=== PATIENT | female | born 1980 | race Caucasian/White ===

== ENCOUNTER 2019-05-09 13:57 | Emergency (ER) | payer OTHER ==
[~2019-05-09] VITALS: Ht 152.4 cm; Wt 104.0 kg
[~2019-05-09 13:57] MED LIST: CARV3.1212 PO; DULA0.75 SC; FURO40TA6 PO; LEVO750T26 PO; LISI5TAB7 PO; METF500T PO; POTA10TA5 PO; SITA50TA PO; SPIR25TA PO
[2019-05-09 14:02] VITALS: BP 154/84
--- NOTE | 2019-05-09 17:16 | NUR ---
[phone] [phone]
--- NOTE | 2019-05-09 17:23 | NUR ---
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
--- NOTE | 2019-05-09 17:38 | NUR ---
[phone]
--- NOTE | 2019-05-09 17:44 | NUR ---
MANAGER STUDENT SERVICES: NOT IN LOBBY
== END 2019-05-09 17:45 | disposition left against medical advice (07) ==
LOC: ED 17:30
DX: R05 Cough (principal); R06.02 Shortness of breath; Z53.21 Procedure and treatment not carried out due to patient leaving prior to being seen by health care provider
CPT/HCPCS: 93005

== ENCOUNTER 2020-02-03 09:57 | Emergency (ER) | payer SELFPAY ==
[~2020-02-03] VITALS: Ht 152.4 cm; Wt 104.9 kg
[2020-02-03] MEDS ORDERED: LIDOCAINE-MPF 1%, 5ML ONE (10:22)
[2020-02-03] MEDS ORDERED: LIDOCAINE-MPF 1%, 5ML INFIL ONE (10:30)
[2020-02-03 11:20] VITALS: BP 128/57
--- NOTE | 2020-02-03 11:22 | NUR ---
Patient/Caregiver given discharge instructions and they have confirmed that they understand the instructions. Patient ambulatory with steady gait.
== END 2020-02-03 11:25 ==
LOC: ED 10:21
DX: L02.214 Cutaneous abscess of groin (principal); E11.9 Type 2 diabetes mellitus without complications; J45.909 Unspecified asthma, uncomplicated; I50.9 Heart failure, unspecified; Z90.49 Acquired absence of other specified parts of digestive tract
CPT/HCPCS: 10060; 82962; 99283

== ENCOUNTER 2020-02-06 12:44 | Emergency (ER) | payer SELFPAY ==
[~2020-02-06] VITALS: Ht 152.4 cm; Wt 105.6 kg
[2020-02-06 12:49] VITALS: BP 146/82
--- NOTE | 2020-02-06 13:10 | NUR ---
RECEIVED REPORT FROM MERLYN. PT UPRIGHT ON GURNEY AWAKE & COMFORTABLE AT REST, RESPONDS APPROP TO STAFF, NAD, NO NEEDS AT THIS TIME, SO AT BS, CALL LIGHT WITHIN REACH.
[2020-02-06] MEDS ORDERED: LIDOCAINE-MPF 1%, 5ML ONE (13:28)
[2020-02-06] MEDS ORDERED: LIDOCAINE-MPF 1%, 5ML INFIL ONE (13:30)
--- NOTE | 2020-02-06 14:12 | NUR ---
TASK RN: DC EDUCATION PROVIDED, PT DEMONSTRATES UNDERSTANDING. PT AMBULATED STEADILY TO DC WITH RN AND FRIEND
== END 2020-02-06 14:28 | disposition home or self-care (01) ==
LOC: ED 14:17
DX: L02.214 Cutaneous abscess of groin (principal); Z88.0 Allergy status to penicillin; Z88.5 Allergy status to narcotic agent; Z88.8 Allergy status to other drugs, medicaments and biological substances
CPT/HCPCS: 99282